=== PATIENT | female | born 1980 | race Hispanic/Latino ===

== ENCOUNTER → 2020-05-20 | Outpatient (CLI) | payer BC | LOC: LAB.O 08:47 | PROVIDERS: ATTEND Obstetrics & Gynecology | DX: Z01.419 Encounter for gynecological examination (general) (routine) without abnormal findings (principal); I10 Essential (primary) hypertension; I82.90 Acute embolism and thrombosis of unspecified vein; Z68.37 Body mass index [BMI] 37.0-37.9, adult ==